=== PATIENT | male | born 1960 | race Caucasian/White ===

== ENCOUNTER 2022-04-25 20:43 | Emergency (ER) | payer OTHER, MEDICAID ==
[~2022-04-25] VITALS: Ht 172.7 cm; Wt 88.5 kg
[2022-04-26] MEDS ORDERED: CLINDAMYCIN 600MG PREMIX 50 ML IV SCH
[2022-04-26] MEDS ORDERED: KETOROLAC 30MG/ML VIAL IV STA (00:06)
[2022-04-26] MEDS ORDERED: CLINDAMYCIN 600 MG in DEXTROSE 5% WATER 50 ML IV ONE (00:15)
[2022-04-26 00:31] LABS: BASOPHILS % 0.7 % (0.0-2.0); EOSINOPHILS % 4.8 % (0.0-5.0); HEMATOCRIT. 38.4 % (42.0-52.0); HEMOGLOBIN. 12.9 g/dL (14.0-18.0); LYMPHOCYTES % 26.5 % (20.0-50.0); MEAN CORPUSCULAR VOLUME 86.4 fL (80.0-94.0); MONOCYTES % 8.6 % (2.0-8.0); NEUTROPHILS % 59.4 % (40.0-76.0); PLATELET 342 x1000/uL (130-400); RED BLOOD CELL COUNT 4.44 mill/uL (4.7-6.1); RED CELL DISTRIBUTION WIDTH 15.5 % (11.6-14.6)
[2022-04-26 00:38] LABS: CHLORIDE 106 mEq/L (98-107)
[2022-04-26] MEDS ORDERED: CLIN-194 PO (02:05)
[2022-04-26 02:28] VITALS: BP 163/100
== END 2022-04-26 02:44 | disposition home or self-care (01) ==
LOC: ER 20:43 → EDBEDREQTM 04-26 00:59 → EDBEDREQ 04-26 00:59 → ER 04-26 02:44 → CANBEDREQ 04-28 18:23
DX: L03.114 Cellulitis of left upper limb (principal); I10 Essential (primary) hypertension
CPT/HCPCS: 36415; 80053; 85025; 96365; 96375; 99284; J1885; J3490; J7060